=== PATIENT | female | born 1990 | race Caucasian/White ===

== ENCOUNTER 2023-09-20 19:29 | Emergency (ER) | payer OTHER, SELFPAY ==
[2023-09-20 19:30] VITALS: BMI 21.5
[2023-09-20 19:36] VITALS: BP 111/74
--- NOTE | 2023-09-20 21:52 | ED.GENMED ---
History of Present Illness
General
Chief Complaint: Throat Problem
Source: patient and spouse
Exam Limitations: none
Time Seen by Provider: 09/20/23 21:31
Nursing documentation reviewed up to this point in time: agreed with
Travel History
Have you had any contact with someone who has COVID-19?: No
Do you have any symptoms of coronavirus? Fever > 100 degrees, chills, cough, shortness of breath, sore throat, loss of taste or smell, muscle aches, or headache?: No
History of Present Illness
History of Present Illness:
33-year-old female limited past medical history presents with sore throat trouble swallowing tongue pain onset a few days ago no fever not eating or drinking much due to pain no sick contacts no nausea or vomiting does drink and smoke,
Past History
Past History
ED Past Medical History: Other (Cellulitis); Negative Asthma, HTN, Hypercholesterolemia or NIDDM
ED Past Surgical History: None
Social History
Tobacco: Smoker
Alcohol: Occasional
Drug: None
Personal:
Living: with family
Employment: Employed
Review of Systems
Review of Systems
All Other Systems: Not applicable
Constitutional: Denies fever or fatigue
EENT: Reports sore throat and mouth pain
Respiratory: Reports no symptoms
Cardiac: Reports no symptoms
ABD/GI: Reports no symptoms
: Reports no symptoms
Phy Exam
Physical Exam
Physical Exam:
Physical Exam
General: 33 female looks uncomfortable not
Neck: Red throat with exudates on right and left midline uvula normal voice no submandibular lymphadenopathy
Heart: s1/s2 regular rate and rhythm, no murmur. equal radial pulses.
Lungs: No wheezing
Abdomen: Not tender
Neuro: alert and oriented. no focal neurological deficits
Skin: no rash
Psychiatric: well kept. interactive and cooperative
Extremities: no edema.
Course
Orders/Labs/Results
Orders:
Orders
09/20/23 21:48
0.9% Sodium Chloride 1000 ml [Nss] 1,000 ml IV BOLUS
Dexamethasone Sod Phosphate [Decadron] 10 mg IV NOW STA
Ketorolac [Toradol] 30 mg IV NOW STA
09/20/23 22:10
Complete Blood Count/With Diff Urgent
Comprehensive Metabolic Panel Urgent
Monotest Urgent
Rapid Strep Group A Urgent
CARLEY Source: Throat/Pharynx
Specimen Description:
Date Specimen was Collected: 09/20/23
Time Specimen was Collected: 21:57
09/20/23 23:00
Clindamycin 600 mg/50 ml [Cleocin] 600 mg in 50 ml IV NOW
Abnormal Lab Results
09/20/23
22:10
RBC 3.92 L 10^6/uL
(4.20-5.40)
Hct 35.3 L %
(37.0-47.0)
MCH 32.4 H pg
(27.0-31.0)
Absolute Monos (auto) 0.9 H 10^3/uL
(0.1-0.6)
Lymphocytes % 16.7 L %
(20.5-51.1)
Monocytes % 10.1 H %
(1.7-9.3)
Potassium 3.3 L mmol/L
(3.5-5.1)
BUN 3 L mg/dl
(7-17)
Creatinine 0.5 L mg/dL
(0.6-1.0)
09/20/23 22:10
09/20/23 22:10
Vital Signs
Initial and Last Documented VS:
Initial Vital Signs
Temp Pulse Resp BP Pulse Ox
99.1 F 78 22 111/74 98
09/20/23 19:36 09/20/23 19:36 09/20/23 19:36 09/20/23 19:36 09/20/23 19:36
Last Documented Vital Signs
Temp Pulse Resp BP Pulse Ox
99.1 F 78 22 103/62 96
09/20/23 19:36 09/20/23 19:36 09/20/23 19:36 09/21/23 00:00 09/21/23 00:00
MDM/Problems Addressed
Differential Diagnosis Includes:
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
MDM/Problems Addressed:
Sore throat
Chronic conditions affecting care:
Smoking
*Critical Care Note
Total Time (30-74mins, 75-104mins- exclusive of procedures): Not Applicable
Update Note
Update Note:
1115 patient feeling better labs noted swabs noted
ED Attending Note
-
Portions of this chart may have been created with voice recognition software.� Occasional wrong word or��sound alike� substitutions may have occurred due to the inherent limitations of voice recognition software.
Discharge Plan
Departure
Patient Disposition: Home (Routine Discharge)
Date of Disposition: 09/21/23
Time of Disposition: 00:01
Patient with high blood pressure during this ER visit?: No
Condition: Good
Discharge Problem:
Acute sore throat
Instructions: Sore Throat, Adult (DC)
Prescriptions:
New
clindamycin HCl [Cleocin HCl] 150 mg capsule
300 mg PO Q8H 7 Days Qty: 42 0RF
methylprednisolone [Medrol (Tulio)] 4 mg tablets,dose pack
See Rx Instructions .ROUTE .COMPLEX Qty: 21 0RF
Rx Instructions:
orally per package directions
Referrals:
NONE,* [Family Provider] -
Activity Restrictions/Additional Instructions:
Drink plenty of fluids,
Antibiotics and steroids as prescribed Tylenol every 4-6 hours as needed for pain
Return to the ER for worsening symptoms
Interventions
Interventions:
*Risk Screen - Suicide Last Done: 09/20/23 19:36
*General Assessment Last Done: 09/20/23 19:36
*Neglect/Abuse Screening Last Done: 09/20/23 19:36
ED-EENT Assessment Last Done: 09/20/23 22:53
ED- Pulmonary Assessment Last Done: 09/20/23 22:53
[2023-09-20 22:12] VITALS: BP 114/62
[2023-09-20 22:18] LABS: % Basophils 0.2 % (0-2); % Eosinophils 1.1 % (0-6); % Immature Granulocytes 0.5 % (0-0.5); % Lymphocytes 16.7 % (20.5-51.1); % Monocytes 10.1 % (1.7-9.3); % Neutrophils 71.4 % (42.2-75.2); Absolute Eosinophils 0.1 10^3/uL (0-0.7); Absolute Lymphocytes 1.5 10^3/uL (1.2-3.4); Absolute Monocytes 0.9 10^3/uL (0.1-0.6); Absolute Neutrophils 6.3 10^3/uL (1.4-6.5); Hematocrit 35.3 % (37.0-47.0); Hemoglobin 12.7 g/dL (12.0-16.0); Mean Corpuscular Hgb 32.4 pg (27.0-31.0); Mean Corpuscular Volume 90.1 fL (81.0-99.0); Mean Platelet Volume 9.3 fL (7.4-10.4); Nucleated Red Blood Cells % 0 %; Platelet Count 262 10^3/uL (130-400); Red Blood Cell Count 3.92 10^6/uL (4.20-5.40); Red Cell Dist. Width 11.8 % (11.5-14.5); White Blood Cell Count 8.8 10^3/uL (4.8-10.8)
[2023-09-20] MEDS: DECADRON 10 MG IV (22:20)
[2023-09-20] MEDS: NSS 1000 IV (22:20)
[2023-09-20] MEDS: TORADOL 30 MG IV (22:20)
[2023-09-20 22:27] LABS: Monotest Negative (Negative)
[2023-09-20 22:33] LABS: ALT (SGPT) 18 U/L (0-35); AST (SGOT) 20 U/L (14-36); Albumin 3.6 g/dl (3.5-5.0); Alkaline Phosphatase 81 U/L (38-126); Blood Urea Nitrogen 3 mg/dl (7-17); Calcium 8.4 mg/dl (8.4-10.2); Carbon Dioxide 22 mmol/L (22-30); Chloride 107 mmol/L (98-107); Estimated Creatinine Clearance 103 ml/min; Glucose 94 mg/dl (70-99); Potassium 3.3 mmol/L (3.5-5.1); Sodium 135 mmol/L (135-145); Total Bilirubin 0.5 mg/dl (0.2-1.3); Total Protein 6.4 g/dl (6.3-8.2); eGFR > 60.00
[2023-09-20 23:00] VITALS: BP 120/73
[2023-09-20] MEDS: CLEOCIN 50 IV (23:12)
[2023-09-21] VITALS: BP 103/62
[2023-09-21 00:30] VITALS: BP 117/69
== END 2023-09-21 00:37 | disposition home or self-care (01) ==
LOC: EMR 19:29
PROVIDERS: EMERGENCY PHYSICIAN Emergency Medicine
DX: J02.9 Acute pharyngitis, unspecified (principal); F17.200 Nicotine dependence, unspecified, uncomplicated
CPT/HCPCS: 99284; 96374; 96375 ×2; 96361; 80053; 85025; 86308; 87070; 87880

== ENCOUNTER 2023-10-01 20:39 | Emergency (ER) | payer OTHER, SELFPAY ==
[2023-10-01 20:43] VITALS: BP 125/95
[2023-10-02 01:15] LABS: Urine Albumin Negative (Neg - Trace); Urine Bilirubin Negative (Negative); Urine Character Clear (Clear); Urine Color Yellow; Urine Glucose Negative (Negative); Urine Ketone 3+ (Negative); Urine Leukocyte Negative (Negative); Urine Nitrite Negative (Negative); Urine Occult Blood Negative (Negative); Urine Urobilinogen Negative (Neg - 1+)
--- NOTE | 2023-10-02 01:17 | ED.GENMED ---
History of Present Illness
General
Chief Complaint: Oral/Mouth Problem
Source: patient
Exam Limitations: none
Time Seen by Provider: 10/02/23 00:20
Nursing documentation reviewed up to this point in time: agreed with
Travel History
Have you had any contact with someone who has COVID-19?: No
Do you have any symptoms of coronavirus? Fever > 100 degrees, chills, cough, shortness of breath, sore throat, loss of taste or smell, muscle aches, or headache?: No
History of Present Illness
History of Present Illness:
t is a 33 y/o F
says about 2.5 weeks ago she developed some sores in her mouth
went to [facility] and was diagnosed with glossitis and given lidocaine suspension which would help briefly and then pain in her mouth would worsen
she came here and had worsening symptoms of sore throat
her exam was documented with red exudates on her uvula
she was tested for strep and mono which were neg
given decadron, toradol and clinda
sent home on medrol dose zara and clinda
she got a little better for a few days but when the medrl zara was completed she got pretty bad pain and a lot of lesios i her tongue and gums
she is seuxally active with multiple partners, one of her partners was just here for orchitis and doesn't know the results of his gc/ct culture yet
pt is extremely anxious that she contracted gonrorhea or chlamydia in her mouth
she also is having some senstivity to her left eye and thinks every 5 minutes or so it swells and drains
she also feels her mouth swell with that left eye every few minutes
she denies any drug abuse
she has had a little vaginal itching and white clumpy discharge as well
Past History
Past History
ED Past Medical History: Other (Cellulitis); Negative Asthma, HTN, Hypercholesterolemia or NIDDM
ED Past Surgical History: None
Social History
Tobacco: Smoker
Alcohol: Occasional
Drug: None
Personal:
Living: with family
Employment: Employed
Review of Systems
Review of Systems
Allergies reviewed?: Yes
All Other Systems: Not applicable
Phy Exam
Physical Exam
Physical Exam:
GENERAL: extremely anxious, shifting in the stretcher, poor focus;
EYE: pupils equal and reactive
no conjunctival injection
no uptake on fluoroscein stain and carrillo lamp
normal pupils
no drainage
NECK: Supple
ENT: pt has many irregular shaped ulceration lesions on a yellowish base on her tongue, spcifically sublingual side and to her gums; she has a blood blister on the right upper gingiva, not bleeding
posterior phayrnx acutally doesn't look affected
no exudate
CARDIAC: Regular rate and rhythm .
LUNGS: Clear breath sounds bilaterally, no acute respiratory distress, no wheezes/rales/rhonchi
ABDOMEN: Soft, without focal tenderness, no r/g, no cvat, normal bowel sounds
NEUROLOGICAL: Alert and oriented, no focal neuro deficits
SKIN: Warm and dry, skin intact. blotchy hands skin dorsum
MUSCULOSKELETAL: No edema, well perfused. neg sukumar's sign
PSYCH: very anxoiuos, hard to focus
Course
Orders/Labs/Results
Orders:
Orders
10/02/23 00:34
Urinalysis Reflex To Culture Urgent
Date Specimen was Collected: 10/02/23
Time Specimen was Collected: 00:18
10/02/23 01:02
HIV Combo Urgent
Herpes Culture Reflex - Typing Urgent
CARLEY Source: Throat/Pharynx
Specimen Description:
Source:: CERVIX
Date Specimen was Collected: 10/02/23
Time Specimen was Collected: 01:00
Syphilis/T. pallidum Ab Reflex Urgent
Comment: ADD ON
Chlamydia/GC by PCR Urgent
CARLEY Source: Endo-Cervical
Specimen Description:
Source:: ENDOCERVICAL
Date Specimen was Collected: 10/02/23
Time Specimen was Collected: 01:00
Trichomonas - Wet Prep Urgent
CARLEY Source: Vagina
Specimen Description:
Date Specimen was Collected: 10/02/23
Time Specimen was Collected: 01:01
10/02/23 01:27
Fluconazole [Diflucan] 150 mg PO NOW STA
Valacyclovir HCl [Valtrex] 1,000 mg PO NOW STA
10/02/23 01:28
Add On- LAB Urgent
Tests Added?: rpr
10/02/23 01:35
GC Culture Urgent
CARLEY Source: Throat/Pharynx
Specimen Description:
Date Specimen was Collected: 10/02/23
Time Specimen was Collected: 01:35
10/02/23 01:45
Fluconazole [Diflucan] 150 mg PO NOW STA
Abnormal Lab Results
10/02/23
00:34
Urine Ketones 3+ A
(Negative)
Vital Signs
Initial and Last Documented VS:
Initial Vital Signs
Temp Pulse Resp BP Pulse Ox
99.3 F 127 18 125/95 97
10/01/23 20:43 10/01/23 20:43 10/01/23 20:43 10/01/23 20:43 10/01/23 20:43
Last Documented Vital Signs
Temp Pulse Resp BP Pulse Ox
99.3 F 89 16 118/87 99
10/01/23 20:43 10/02/23 02:06 10/02/23 02:06 10/02/23 02:06 10/02/23 02:06
MDM/Problems Addressed
Differential Diagnosis Includes:
HSV primary infection, gonococcal pharyngitis, HIV,,
MDM/Problems Addressed:
33-year-old extremely anxious female here presenting regarding ongoing oral lesions and pain for the last several weeks. Patient was initially treated with just a topical viscous lidocaine and then was treated with antibiotics and steroids, she
seems to have had a rebound of symptoms with more oral lesions than when she had presented earlier. She has no significant fever but had a borderline temperature on arrival. She is having pain when she eats and swallows. She says every 5 to 10
minutes she feels like her tongue swells up and she gets more pain. She also feels some eye irritation in the left bulbar conjunctive, superior lateral eyelid and says that she is worried that she is transmitted what ever infection into her eye.
During the history taking the patient was frequently shifting in the stretcher, clearly very anxious, touching her labia and anus and then putting her fingers in her mouth and eyes.
Her boyfriend was on the phone with her, she was aware that he was tested for gonorrhea and chlamydia but the results were not back yet according to him. While on the phone he gave me permission to look up his results to notify him and her about
his results. His gonorrhea and Chlamydia test were negative. However the patient has multiple partners and could still have been exposed. This is less likely to be gonococcal pharyngitis but more looks like a herpetic picture. Given her possible
exposure she was tested for multitude of STIs including HIV, syphilis, trichomonas, gonorrhea and chlamydia vaginally as well as a gonorrhea culture from her pharynx and tongue and herpes culture from her tongue.
Her last menstrual cycle was a week ago.
I did do a formal pelvic exam as well because she was having some vaginal discharge and itching which looks to be consistent with yeast vaginitis. She had no cervicitis. She will be treated for Diflucan for that. Regarding her oral lesions I do
suspect a viral source. So we will cover her with Valtrex, 1 dose of steroids here.
Will hold off on any additional treatment until her test result
Patient was counseled on safe sex practices
*Critical Care Note
Total Time (30-74mins, 75-104mins- exclusive of procedures): Not Applicable
ED Attending Note
-
Portions of this chart may have been created with voice recognition software.� Occasional wrong word or��sound alike� substitutions may have occurred due to the inherent limitations of voice recognition software.
Discharge Plan
Departure
Patient Disposition: Home (Routine Discharge)
Date of Disposition: 10/02/23
Time of Disposition: 02:25
Patient with high blood pressure during this ER visit?: No
Condition: Fair
Covid-19: Not Applicable
Discharge Problem:
Lesion of mouth, Vaginal yeast infection
Instructions: Vaginal Yeast Infection (DC), Cold Sores (Oral Herpes) (DC)
Prescriptions:
New
valacyclovir 1 gram tablet
1,000 mg PO BID Qty: 20 0RF
dexamethasone 4 mg tablet
10 mg PO ONCE Qty: 2.5 0RF
Referrals:
NONE,* [Family Provider] -
Activity Restrictions/Additional Instructions:
I believe your symptoms are due to a virus. You can try valacyclovir twice a day for 10 days.
for pain take tylenol and motrin
you can also use the dose of decadron prescribed as a one time dose of steroid.
we sent cultures and swabs checking for gonorrhea, chlamydia, herpes, trichomonas, hiv and syphilis
you will get a phone call if positive
return for: severe worsening eye pain, vision changes, sever throat pain/inability to swallow, fever, or any concerns.
Interventions
Interventions:
*Risk Screen - Suicide Last Done: 10/01/23 20:45
*General Assessment Last Done: 10/01/23 20:45
*Neglect/Abuse Screening Last Done: 10/01/23 20:45
ED- Fall Risk Assessment Last Done: 10/02/23 00:40
*ED COVID-19 Vaccine History Last Done: 10/02/23 00:14
*Nursing Disposition Last Done: 10/02/23 02:07
Discharge Date and Time
Discharge Date/Time: 10/02/23 02:07
[2023-10-02] MEDS: VALTREX 1000 MG PO (01:46)
[2023-10-02] MEDS: DIFLUCAN 150 MG PO (02:00)
[2023-10-02 02:06] VITALS: BP 118/87
[2023-10-02 04:16] LABS: HCG, Urine Qualitative Screen Negative
[2023-10-03 14:41] LABS: HIV Combo Negative (Negative)
[2023-10-03 16:36] LABS: Syphilis/T. pallidum Ab Reflex Negative (Negative)
== END 2023-10-02 02:07 | disposition home or self-care (01) ==
LOC: EMR 20:39
PROVIDERS: Physician Assistant; Student in an Organized Health Care Education/Training Program; EMERGENCY PHYSICIAN Emergency Medicine
DX: K13.70 Unspecified lesions of oral mucosa (principal); B37.31 Acute candidiasis of vulva and vagina; F17.200 Nicotine dependence, unspecified, uncomplicated
CPT/HCPCS: 99283; 81003; 81025; 86780; 87081; 87210; 87255; 87389; 87491; 87591

== ENCOUNTER 2024-03-15 15:43 | Emergency (ER) | payer OTHER, SELFPAY ==
[2024-03-15 15:45] VITALS: BP 124/68
[2024-03-15 16:12] LABS: % Basophils 0.3 % (0-2); % Eosinophils 0.2 % (0-6); % Immature Granulocytes 0.3 % (0-0.5); % Lymphocytes 7.5 % (20.5-51.1); % Monocytes 6.1 % (1.7-9.3); % Neutrophils 85.6 % (42.2-75.2); Absolute Basophils 0.1 10^3/uL (0-0.2); Absolute Immature Granulocytes 0.1 10^3/uL (0-0.05); Absolute Lymphocytes 1.3 10^3/uL (1.2-3.4); Absolute Neutrophils 14.4 10^3/uL (1.4-6.5); Hematocrit 38.6 % (37.0-47.0); Hemoglobin 13.9 g/dL (12.0-16.0); Mean Corpuscular Hgb 33.3 pg (27.0-31.0); Mean Corpuscular Volume 92.3 fL (81.0-99.0); Nucleated Red Blood Cells % 0 %; Platelet Count 298 10^3/uL (130-400); Red Blood Cell Count 4.18 10^6/uL (4.20-5.40); Red Cell Dist. Width 12.2 % (11.5-14.5); White Blood Cell Count 16.8 10^3/uL (4.8-10.8)
[2024-03-15 16:15] LABS: ALT (SGPT) 13 U/L (0-35); AST (SGOT) 19 U/L (14-36); Albumin 4.5 g/dl (3.5-5.0); Alkaline Phosphatase 76 U/L (38-126); Blood Urea Nitrogen 11 mg/dl (7-17); Calcium 9.6 mg/dl (8.4-10.2); Carbon Dioxide 26 mmol/L (22-30); Chloride 100 mmol/L (98-107); Glucose 139 mg/dl (70-99); Lipase 62 U/L (23-300); Potassium 3.8 mmol/L (3.5-5.1); Sodium 140 mmol/L (135-145); Total Bilirubin 0.9 mg/dl (0.2-1.3); Total Protein 7.2 g/dl (6.3-8.2); eGFR > 60.00
[2024-03-15 16:18] LABS: Urine Albumin 3+ (Neg - Trace); Urine Bilirubin 1+ (Negative); Urine Character Very Cloudy (Clear); Urine Color Brown; Urine Glucose Negative (Negative); Urine Ketone 2+ (Negative); Urine Leukocyte 2+ (Negative); Urine Nitrite Positive (Negative); Urine Occult Blood 4+ (Negative); Urine Specific Gravity 1.015 (<1.030); Urine Urobilinogen 1+ (Neg - 1+); Urine pH 6.5 (5.0-9.0)
[2024-03-15 16:41] LABS: Urine Bacteria Few (Negative); Urine Red Blood Cell >100 /HPF (0-2); Urine White Cell 16-20 /HPF (0-5)
[2024-03-15 17:11] VITALS: BMI 21.1
--- NOTE | 2024-03-15 17:13 | EDRN ---
Pt had a miscarriage and couple weeks ago she went to a clinic and was given something that starts with a 'm' to facilitate the process. Pt passed 'some stuff' and cramping went away. This week, cramps returned, shooting pains down her legs and
she feels she might have a uti - burning with urination. Pt noted blood in her urine when she provided sample today. Pt has not had any vaginal bleeding for couple days. Pt complains of constant cramping that is worse that period cramping for
couple days. Chills, no fever. Pt vomited 2-3 times last night. No nausea now. Appetite decreased.
[2024-03-15 17:21] VITALS: BP 110/73
[2024-03-15 19:03] VITALS: BP 119/70
--- NOTE | 2024-03-15 19:59 | ED.GENMED ---
History of Present Illness
General
Chief Complaint: Abdominal Pain
Time Seen by Provider: 03/15/24 17:18
History of Present Illness
History of Present Illness:
Female, Tena presents the emergency department for evaluation of lower abdominal pain. She reports approximate 3 weeks ago she suffered a miscarriage approximately 6 to 7 weeks and was treated orally per the family. States she had several days of
vaginal bleeding that is since subsided. She has had no vaginal bleeding since then and continues to have no vaginal bleeding or discharge today. Reports lower abdominal discomfort and dysuria. Denies fevers or chills. No urine frequency.
Past History
Past History
ED Past Medical History: Other (Cellulitis); Negative Asthma, HTN, Hypercholesterolemia or NIDDM
ED Past Surgical History: None
Social History
Tobacco: Smoker
Alcohol: Occasional
Drug: None
Personal:
Living: with family
Employment: Employed
Review of Systems
Review of Systems
Allergies reviewed?: Yes
All Other Systems: ROS reviewed and negative except as documented in HPI and ROS
Phy Exam
Physical Exam
Physical Exam:
GEN: Well appearing, NAD, WDWN
HEENT: Oral mucosa moist, no scleral icterus
Cardiac: Regular rate
Lung: No respiratory distress, no tachypnea
Abdomen: Soft, moderate suprapubic and left lower quadrant tenderness, no rigidity
MSK: No gross deformity or injuries
Skin: Good color, no pallor or jaundice, no rashes
Neuro: AO x3, moves all extremities freely
Psych: Calm, cooperative
Course
Orders/Labs/Results
Orders:
Orders
03/15/24 15:54
Complete Blood Count/With Diff Urgent
Comprehensive Metabolic Panel Urgent
HCG, Beta Quantitative [Beta HCG Quantitative] Urgent
Is this a screen?: No
Lipase Urgent
Urine Culture Reflexed from UA [Urinalysis Reflex To Culture] Urgent
Date Specimen was Collected: 03/15/24
Time Specimen was Collected: 15:48
Urine Microscopic Reflex Cult Urgent
Urine Culture Urgent
CARLEY Source: U
Specimen Description:
Date Specimen was Collected: 03/15/24
Time Specimen was Collected: 15:48
03/15/24 17:42
US Pelvis W Transvag Combined Urgent
Comment:
Reason For Exam: lower abd pain, recent miscarriage
03/15/24 20:13
Nitrofurantoin Monohydrate [Macrobid] 100 mg PO NOW STA
Abnormal Lab Results
03/15/24
15:54
WBC 16.8 H 10^3/uL
(4.8-10.8)
RBC 4.18 L 10^6/uL
(4.20-5.40)
MCH 33.3 H pg
(27.0-31.0)
Abs Immat Gran (auto) 0.1 H 10^3/uL
(0-0.05)
Absolute Neuts (auto) 14.4 H 10^3/uL
(1.4-6.5)
Absolute Monos (auto) 1.0 H 10^3/uL
(0.1-0.6)
Neutrophils % 85.6 H %
(42.2-75.2)
Lymphocytes % 7.5 L %
(20.5-51.1)
Glucose 139 H mg/dl
(70-99)
Urine Ketones 2+ A
(Negative)
Ur Occult Blood Reflex 4+ A
(Negative)
Urine Nitrite (Reflex) Positive A
(Negative)
Urine Bilirubin 1+ A
(Negative)
Leukocyte Esterase Rfl 2+ A
(Negative)
Urine RBC >100 A /HPF
(0-2)
Urine WBC (Reflex) 16-20 A /HPF
(0-5)
Urine Bacteria (Reflex) Few A
(Negative)
Urine Albumin (Reflex) 3+ A
(Neg - Trace)
03/15/24 15:54
03/15/24 15:54
Vital Signs
Initial and Last Documented VS:
Initial Vital Signs
Temp Pulse Resp BP Pulse Ox
98.3 F 96 18 124/68 99
03/15/24 15:45 03/15/24 15:45 03/15/24 15:45 03/15/24 15:45 03/15/24 15:45
Last Documented Vital Signs
Temp Pulse Resp BP Pulse Ox
98.3 F 74 18 120/70 97
03/15/24 15:45 03/15/24 20:00 03/15/24 20:00 03/15/24 20:00 03/15/24 20:00
MDM/Problems Addressed
MDM/Problems Addressed:
Workup is highly suspicious for an acute UTI evidenced by dysuria, suprapubic pain, and pyuria. She is afebrile and although she has leukocytosis has no clinical signs or symptoms of pyelonephritis. Her hCG remains detectable but this is not
particular abnormal in the setting of her recent miscarriage, she has no evidence of retained products of conception ultrasound. Given the alternative diagnosis we will treat for UTI however emergency room obtain a repeat hCG within the next week
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 If hCG does not return to 0 or she develop vaginal discharge will need further workup for possible antibiotics but at this time the likelihood is low
*Critical Care Note
Total Time (30-74mins, 75-104mins- exclusive of procedures): Not Applicable
ED Attending Note
-
Portions of this chart may have been created with voice recognition software.� Occasional wrong word or��sound alike� substitutions may have occurred due to the inherent limitations of voice recognition software.
Discharge Plan
Departure
Patient Disposition: Home (Routine Discharge)
Date of Disposition: 03/15/24
Time of Disposition: 20:14
Patient with high blood pressure during this ER visit?: No
Discharge Problem:
Urinary tract infection
Instructions: Urinary Tract Infection, Adult ED
Prescriptions:
New
nitrofurantoin macrocrystal 100 mg capsule
100 mg PO BID 5 Days Qty: 10 0RF
Referrals:
NONE,* [Family Provider] -
Activity Restrictions/Additional Instructions:
Your hCG hormone levels need to be redrawn within the next 7 days. I have written orders for you to have this done as an outpatient however this can be done through your HEADING UP MACHINE OPERATOR as well
If your hCG levels do not improve or if you develop vaginal bleeding or worsening abdominal pain despite antibiotics, return to the emergency department for further evaluation
Interventions
Interventions:
*Risk Screen - Suicide Last Done: 03/15/24 15:45
*General Assessment Last Done: 03/15/24 15:45
*Neglect/Abuse Screening Last Done: 03/15/24 15:45
*ED COVID-19 Vaccine History Last Done: 03/15/24 17:12
CF-Wkttjs-Fgkiqcttzb Assessment Last Done: 03/15/24 17:23
Discharge Date and Time
Print Language: PASHTO
[2024-03-15 20:00] VITALS: BP 120/70
[2024-03-15] MEDS: MACROBID 100 MG PO (20:32)
== END 2024-03-15 20:37 | disposition home or self-care (01) ==
LOC: EMR 15:43
PROVIDERS: Emergency Medicine; EMERGENCY PHYSICIAN Emergency Medicine
DX: N39.0 Urinary tract infection, site not specified (principal); F17.200 Nicotine dependence, unspecified, uncomplicated
CPT/HCPCS: 99284; 76830; 76856; 80053; 81003; 81015; 83690; 84702; 85025; 87077; 87086; 87186

== ENCOUNTER 2025-01-13 09:25 | Emergency (ER) | payer OTHER, SELFPAY ==
[2025-01-13 09:27] VITALS: BP 145/84
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
== END 2025-01-13 12:58 | disposition home or self-care (01) ==
LOC: EMR 09:25
PROVIDERS: EMERGENCY PHYSICIAN Emergency Medicine
DX: S16.1XXA Strain of muscle, fascia and tendon at neck level, initial encounter (principal); Y04.0XXA Assault by unarmed brawl or fight, initial encounter; F17.200 Nicotine dependence, unspecified, uncomplicated
CPT/HCPCS: 99285; 71046; 72040; 72100; 72220